=== PATIENT | female | born 1945 | race Caucasian/White ===

== ENCOUNTER 2018-05-29 11:44 | Day surgery (SDC) | payer MEDICARE ==
[2018-05-29] MEDS ORDERED: NS 0.9% 1000 ML** 1,000 ML IV ONE (13:22)
--- NOTE | 2018-05-29 13:22 | ED ---
Abdominal Pain/Female - HPI Summary HPI Summary: This pt is a 72 y/o female presenting to [facility] c/o RLQ abdominal pain today. Pt states she woke up at 01:30 today with abd pain located around her umbilicus. Additionally notes she had nausea. Pt then got up and went to the bathroom and states she had diarrhea. Pt reports that around 05:00 her abd pain localized to her right lower quadrant. Denies hx of appendectomy. Denies feve, chills, chest pain, SOB. Pt last ate and had coffee this morning. PMHx includes HTN on medications, dyslipidemia, hysterectomy, laparotomy. Denies tobacco and drug use, but admits to occasional beers at night. - History of Current Complaint Chief Complaint: EDAbdPain Stated Complaint: RIGHT SIDED ABD PAIN PER PT Time Seen by Provider: 05/29/18 13:01 Hx Obtained From: Patient Onset/Duration: Lasting Hours, Still Present Timing: Hours Severity Currently: Mild Pain Intensity: 2 Pain Scale Used: 0-10 Numeric Location: Discrete At: RLQ Radiates: No Aggravating Factor(s): Nothing Alleviating Factor(s): Nothing Associated Signs and Symptoms: Positive: Nausea, Vomiting, Diarrhea. Negative: Fever, Chest Pain Allergies/Adverse Reactions: Allergies Allergy/AdvReac Type Severity Reaction Status Date / Time No Known Allergies Allergy Verified 05/29/18 11:55 Home Medications: Home Medications Atorvastatin* [Lipitor*] 10 mg PO DAILY 05/29/18 [History Confirmed 05/29/18] Fluticasone HFA 110 mcg(NF) [Flovent HFA 110 mcg(NF)] 1 puff INH BID 05/29/18 [ History Confirmed 05/29/18] Hydrochlorothiazide TAB* [Hydrodiuril TAB*] 25 mg PO DAILY 05/29/18 [History Confirmed 05/29/18] amLODIPine TAB* [Norvasc 5 mg TAB*] 5 mg PO DAILY 05/29/18 [History Confirmed ] PMH/Surg Hx/FS Hx/Imm Hx Cardiovascular History: Reports: Hx Hypercholesterolemia, Hx Hypertension Respiratory History: Reports: Hx Asthma - Cancer History Hx Chemotherapy: No Hx Radiation Therapy: No - Surgical History Surgery Procedure, Year, and Place: Hysterectomy. Laparotomy Infectious Disease History: No Infectious Disease History: Denies: Traveled Outside the [place] in Last 30 Days - Family History Family History: Mother with skin CA. No FHx of colon CA. - Social History Alcohol Use: Occasionally Substance Use Type: Reports: None Smoking Status (MU): Never Smoked Tobacco Review of Systems Negative: Fever, Chills Negative: Chest Pain Negative: Shortness Of Breath Positive: Abdominal Pain, Vomiting, Diarrhea, Nausea All Other Systems Reviewed And Are Negative: Yes Physical Exam - Summary Physical Exam Summary: VITAL SIGNS: Reviewed. GENERAL: Patient is a well-developed and nourished female who is lying comfortable in the stretcher. Patient is not in any acute respiratory distress. HEAD AND FACE: Normocephalic and atraumatic. EYES: PERRLA, EOMI x 2, No injected conjunctiva. EARS: Hearing grossly intact. Ear canals and tympanic membranes are WNL. MOUTH: Oropharynx within normal limits. NECK: Supple, trachea is midline, no adenopathy, no JVD. CHEST: Symmetric, no tenderness at palpation LUNGS: Clear to auscultation bilaterally. No wheezing or crackles. CVS: RRR, S1 and S2 present, no murmurs or gallops appreciated. ABDOMEN: Soft, right lower quadrant tenderness. No signs of distention. Positive bowel sounds. No rebound no guarding, and no masses palpated. No abdominal bruit or pulsations. EXTREMITIES: FROM in all major joints, no edema, no cyanosis or clubbing. NEURO: Alert and oriented x 3. No acute neurological deficits. Speech is normal. SKIN: Dry and warm Triage Information Reviewed: Yes Vital Signs On Initial Exam: Initial Vitals Temp Pulse Resp BP Pulse Ox 98.9 F 84 18 154/80 100 05/29/18 11:53 05/29/18 11:53 05/29/18 11:53 05/29/18 11:53 05/29/18 11:53 Vital Signs Reviewed: Yes Diagnostics - Vital Signs Vital Signs Temp Pulse Resp BP Pulse Ox 05/29/18 11:53 98.9 F 84 18 154/80 100 - Laboratory Result Diagrams: 05/29/18 13:32 05/29/18 13:32 Lab Statement: Any lab studies that have been ordered have been reviewed, and results considered in the medical decision making process. - CT Abdomen/pelvis CT CT Interpretation Completed By: Radiologist Summary of CT Findings: IMPRESSION: #. Acute appendicitis without periappendiceal abscess. #. 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 Results discussed with Dr. Ross at 1608 hours May 29, 2018. - EKG 13:32 Cardiac Rate: NL - at 81 bpm EKG Rhythm: Sinus Rhythm Summary of EKG Findings: No ST elevations. Normal axis. Re-Evaluation - Re-Evaluation First Eval Re-Evaluation Time: 18:35 Comment: Dr. Solis, surgeon, at bedside. Abdominal Pain Fem Course/Dx - Course Course Of Treatment: This patient is a 72-year-old female who presents to the emergency department with a chief complaint of having right lower quadrant pain. Test results without any significant abnormality except WBCs of 13.7, sodium 132, potassium 3.4, chloride 96, glucose 116, CRP is 28.02, lipase is 10. Urinalysis is negative for UTI. Abdominal and pelvic CT impression: #. Acute appendicitis without periappendiceal abscess. #. 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 The patient reports no claudication, she reports that she rides a bicycle 30 minutes every day. At this time I discussed my physical exam, findings and test results with the nurse from Dr. Solis who is doing a surgery and he recommended antibiotics and he will come see the patient. Patient was given cefoxitin, IV fluids. The patient is hemodynamically stable. Dr. Solis, surgeon, came and evaluated the pt in the ED. Dr. Solis will admit the pt to his services. - Diagnoses Provider Diagnoses: Appendicitis, Acute appendicitis - Provider Notifications Discussed Care Of Patient With: Nurse from Dr. Solis' service Time Discussed With Above Provider: 16:34 Instructed by Provider To: Other - Discussed the case with the nurse from Dr. Solis' services who reports Dr. Solis will consult on the pt. Discharge - Sign-Out/Discharge Documenting (check all that apply): Patient Departure - Admit to surgery All imaging exams completed and their final reports reviewed: Yes Patient Received Moderate/Deep Sedation with Procedure: No - Discharge Plan Condition: Stable Disposition: ADMITTED TO [facility] - Billing Disposition and Condition Condition: STABLE Disposition: Admitted to [facility] - Attestation Statements Document Initiated by Manuel: Yes Documenting Scribe: Piper Sharma Provider For Whom Manuel is Documenting (Include Credential): Harsh Ross MD Scribe Attestation: IPiper, scribed for Harsh Ross MD on 05/29/18 at 1844. Scribe Documentation Reviewed: Yes Provider Attestation: The documentation as recorded by the Piper amador accurately reflects the service I personally performed and the decisions made by pr, Harsh Ross MD Status of Scribe Document: Viewed
[2018-05-29 13:40] LABS: ABS Basophils 0.1 10^3/ul (0-0.2); ABS Eosinophils 0 10^3/ul (0-0.6); ABS Lymphocytes 1.4 10^3/ul (1.0-4.8); ABS Monocytes 0.7 10^3/ul (0-0.8); ABS Neutrophils 11.5 10^3/ul (1.5-7.7); ABS Nucleated RBC 0 10^3/ul; Eosinophil % 0.3 %; Hematocrit 41 % (33-41); Lymphocyte % 10.2 %; Mean Corpuscular HGB Conc 34 g/dL (31-36); Mean Corpuscular Hemoglobin 31 pg (27-31); Mean Corpuscular Volume 91 fL (80-97); Mean Platelet Volume 7.3 fL (7.4-10.4); Nucleated Red Blood Cells % 0; Platelet Count 364 10^3/uL (150-450); Red Blood Count 4.49 10^6 /uL (3.70-4.87); Red Cell Distribution Width 14 % (10.5-15); White Blood Count 13.7 10^3/uL (3.5-10.8)
[2018-05-29 13:57] LABS: Albumin 4.5 g/dL (3.2-5.2); Albumin/Globulin Ratio 1.9 (1-3); BUN/Creatinine Ratio 13.6 (8-20); C Reactive Protein 28.02 mg/L (<8.01); Calcium 9.4 mg/dL (8.6-10.3); EGFR African American 121.9 (>60); EGFR Non-African American 100.8 (>60); Globulin 2.4 g/dL (2-4); Magnesium 1.9 mg/dL (1.9-2.7); Potassium 3.4 mmol/L (3.5-5.0); Total Bilirubin 0.6 mg/dL (0.2-1.0); Total Protein 6.9 g/dL (6.4-8.9)
[2018-05-29] MEDS ORDERED: Iohexol 300* (CONTRAST) 10 ML SDV IV ONE (15:29)
[2018-05-29 15:45] LABS: Urine Appearance Clear; Urine Bilirubin Negative (Negative); Urine Blood Negative (Negative); Urine Color Straw; Urine Glucose Negative (Negative); Urine Ketones 1+ (Negative); Urine Nitrite Negative (Negative); Urine Protein Negative (Negative); Urine Specific Gravity 1.005 (1.010-1.030); Urine Urobilinogen Negative (Negative)
[2018-05-29] MEDS ORDERED: ceFOXitin(*) 1 GM in NS 0.9% 50 ML* 50 ML IVPB ONE (16:48)
[2018-05-29] MEDS ORDERED: NS 0.9% 50 ML* 50 ML ONE (16:50)
[2018-05-29] MEDS ORDERED: NS 0.9% 1000 ML** 1,000 ML IV SCH (18:00)
[2018-05-29] MEDS ORDERED: KCL 10 MEQ/50 ML IVPREMIX* 10 MEQ/50 ML BAG IV ONE (18:07)
[2018-05-29] MEDS ORDERED: Bupivacaine 0.5% W/EPI SDV* 30 ML VIAL ONE (18:32)
[2018-05-29] MEDS ORDERED: ceFOXitin(*) 1 GM VIAL ONE (18:34)
[2018-05-29] MEDS ORDERED: Sodium Citrate/Citric Acid* 15 ML UDC PO ONE (19:03)
[2018-05-29] MEDS ORDERED: Levalbuterol 0.63MG/3ML NEB* UNIT OF USE INH ONE ×2 (19:03)
[2018-05-29] MEDS ORDERED: Sodium Citrate/Citric Acid* 15 ML UDC ONE (19:04)
[2018-05-29] MEDS ORDERED: Naloxone* 0.4 MG/ML 1 ML VIAL IV PRN (19:06)
[2018-05-29] MEDS ORDERED: fentaNYL* 50 MCG/ML 2 ML VIAL (100 MCG VIAL) IV PRN (19:06)
[2018-05-29] MEDS ORDERED: Ondansetron INJ* 2 MG/ML VIAL IV PRN (19:06)
[2018-05-29] MEDS ORDERED: fentaNYL* 50 MCG/ML 2 ML VIAL (100 MCG VIAL) ONE (19:21)
[2018-05-29] MEDS ORDERED: Propofol* 10 MG/ML 20 ML BTL ONE (19:22)
[2018-05-29] MEDS ORDERED: Rocuronium* 10 MG/ML VIAL ONE (19:23)
[2018-05-29] MEDS ORDERED: Lidocaine 2% PF * 5 ML VIAL ONE (19:23)
[2018-05-29] MEDS ORDERED: Glycopyrrolate IV* 0.2 MG/ML 1 ML VIAL ONE (20:04)
[2018-05-29] MEDS ORDERED: Neostigmine Methylsulfate* 1 MG/ML 10 ML VIAL (1 mg/ml) ONE (20:04)
[2018-05-29] MEDS ORDERED: Ketorolac INJ* 30 MG/ML 1 ML VIAL ONE (20:05)
[2018-05-29] MEDS ORDERED: Ibuprofen TAB* 400 MG PO PRN (20:16)
[2018-05-29] MEDS ORDERED: oxyCODONE TAB* 5 MG TAB PO PRN (20:16)
[2018-05-29] MEDS ORDERED: oxyCODONE TAB* 5 MG TAB ONE (20:37)
[2018-05-29 21:34] VITALS: BP 116/78
--- NOTE | 2018-05-29 23:07 | BRIEFOPN ---
Brief Operative Note - Surgery Procedures: PREOP/POSTOP DX: ACUTE APPENDICITIS PROC: LAP APPENDECTOMY SURG: MECENAS ASSIST: NONE ANES: GET; JUSTIN EBL: MINIMAL IVF: 600ML LR SPEC: APPENDIX DRAIN: NONE COMPL: NONE COND: STABLE TO RR; EXTUBATED. FINDINGS: DICTATED.
--- NOTE | 2018-05-30 04:45 | OP ---
CC: Devin Bravo MD * DATE OF OPERATION: 05/29/18 - SDS DATE OF : 49 SURGEON: Sav Solis MD SEWER PIPE SORTER: None. ANESTHESIOLOGIST: Dr. Fontenot ANESTHESIA: General endotracheal. PRE-OP DIAGNOSIS: Acute appendicitis. POST-OP DIAGNOSIS: Acute appendicitis. OPERATIVE PROCEDURE: Laparoscopic appendectomy. ESTIMATED BLOOD LOSS: Minimal. IV FLUIDS: 600 mL crystalloid. SPECIMEN: Appendix. DRAINS: None. COMPLICATIONS: None. COUNTS: The instrument, needle, and sponge counts were correct. DESCRIPTION OF PROCEDURE: The patient was brought to the operating room and placed on the table supine. Sequential compression devices were placed on both lower extremities. General anesthesia was administered. The abdomen was prepped and draped in the usual sterile fashion. Time time-out was performed. Appropriate intravenous antibiotics were administered. Prior to making each incision, local anesthetic was infiltrated into the skin and soft tissue. Entry into the abdomen was through an infraumbilical incision using an open technique. The peritoneal cavity was accessed. Carbon dioxide was insufflated to a pressure of 15 mmHg. Under direct visualization, 5 mm trocars were placed in the suprapubic midline and also in the left lower quadrant. Inspection in the right lower quadrant revealed an acutely inflamed appendix with suppurative changes. The appendix was mobilized dividing the attachments laterally and filmy attachments to the mesentery of the colon. Then, the appendix was elevated. A window was created in the appendix mesentery at the base. The appendix was divided from the cecum with the Endo DUDLEY stapler with a valerio cartridge and then mesentry of the appendix was divided with the Endo DUDLEY stapler with a harvey cartridge. The appendix was placed into an endoscopic retrieval bag and retrieved through the umbilical site. Spencer lines were inspected and noted to be intact and hemostasis was excellent. Ports removed under direct visualization. Carbon dioxide was released. Umbilical wound was closed with 0 Vicryl to approximate the fascia in a [id number] fashion. The skin incisions were closed with 4-0 Monocryl in a subcuticular fashion and then Steri-Strips were applied. The patient tolerated this procedure well. The patient was extubated and transferred to the recovery room in a stable condition. [id number]/[facility] #: [id number] [facility]
== END 2018-05-29 18:29 | disposition home or self-care (01) ==
LOC: ED 11:44 → OR 18:29
PROVIDERS: ATTEND Surgery
DX: K35.80 Unspecified acute appendicitis (principal); R10.31 Right lower quadrant pain; I10 Essential (primary) hypertension; E78.5 Hyperlipidemia, unspecified; J45.909 Unspecified asthma, uncomplicated
CPT/HCPCS: 36415; 74177; 80053; 81003; 83605; 83690; 83735; 85025; 86140; 88304; 93005; 99285; A9270-GY; C1776; J0694; J1885; J2704; J2710; J3010; Q9967